=== PATIENT | male | born 1985 | race Caucasian/White ===

== ENCOUNTER → 2020-11-01 11:44 | Outpatient (CLI) | payer BC, SELFPAY ==
[2020-11-01 12:37] LABS: Basophils % 0.5 % (0.1-2.0); Eosinophils # 0.1 K/mm3 (0.0-0.4); Eosinophils % 1.6 % (0.1-12.0); Hematocrit 46.7 % (42.0-52.0); Lymphocytes # 2.3 K/mm3 (0.7-4.5); Lymphocytes % 28.4 % (10-50); Mean Corpuscular HGB Conc 34.3 g/dL (31.8-35.4); Mean Corpuscular Hemoglobin 32.4 pg (27.0-31.2); Mean Corpuscular Volume 94.3 fl (80-94); Mean Platelet Volume 7.3 fl (7.4-10.4); Monocytes # 0.9 K/mm3 (0.1-1.0); Monocytes % 10.5 % (1.7-9.3); Neutrophils # 4.9 K/mm3 (1.8-7.8); Neutrophils % 58.9 % (37.0-80.0); Platelet Count 210 K/mm3 (142-424); Red Blood Count 4.96 M/mm3 (4.60-6.20); Red Cell Distribution Width 13.2 % (11.5-17.5); White Blood Count 8.2 K/mm3 (4.8-10.8)
== END ==
PROVIDERS: PCP Family Medicine; Visit Provider Nurse Practitioner
DX: Z20.822 Contact with and (suspected) exposure to COVID-19 (principal); U07.1 COVID-19; J06.9 Acute upper respiratory infection, unspecified
CPT/HCPCS: 36415; 85025; U0003

== ENCOUNTER → 2021-09-14 09:54 | Outpatient (CLI) | payer BC, SELFPAY | PROVIDERS: Visit Provider Nurse Practitioner | DX: Z20.822 Contact with and (suspected) exposure to COVID-19 (principal) | CPT/HCPCS: C9803; U0003; U0005 ==

== ENCOUNTER 2024-09-24 11:52 | Outpatient (CLI) | payer BC, SELFPAY ==
--- NOTE | 2024-09-24 14:10 | CT_ITS ---
FINAL REPORT TECHNIQUE: After the administration of oral and intravenous contrast, axial images were obtained through the abdomen and pelvis by computed tomography. The study was performed with techniques to keep radiation dose as low as reasonably achievable, (ALARA). Individual dose reduction techniques using automated exposure control or adjustment of mA and/or kV according to the patient's size were employed. CLINICAL HISTORY: POSSIBLE APPENDICITIS COMPARISON: None FINDINGS: Abdomen: The lung bases are clear. There is a small sliding-type hiatal hernia. There is moderate fatty infiltration of the liver. The gallbladder is absent. The spleen, pancreas, adrenals and kidneys appear unremarkable. The aorta is normal in caliber. There is no free fluid. There are multitude of enlarged lymph nodes throughout the mesentery measuring 1.8 cm in greatest dimension with mild edema surrounding the lymph nodes consistent with acute mesenteric adenopathy. These are well seen on axial images 49 through 72 of series 2. Pelvis: The appendix is normal size. There is mild hazy stranding in the right lower quadrant likely also related to mesenteric adenitis. The urinary bladder is normal size and configuration. There is no pelvic free fluid. IMPRESSION: Multitude of mesenteric lymph nodes with surrounding hazy edema probably related to acute mesenteric adenitis. Correlate clinically. Reviewed, Interpreted and Dictated by Mukul Allan MD Transcribed by Donya Gunderson Authenticated and [facility]
[2024-09-24] MEDS: DIATRIZOATE MEG 66% & DIATRIZOATE NA 10% 30ML UDC 30 ML PO (14:15)
[2024-09-24] MEDS: SODIUM CHLORIDE 0.9% 10ML SYR (RAD ONLY) 10 ML IV (14:15)
[2024-09-24] MEDS: IOPAMIDOL-370 (76%);100ML BOTTLE 75 ML IV (14:15)
== END 2024-09-24 23:59 | disposition home or self-care (01) ==
LOC: RAD 11:55
PROVIDERS: PCP Family Medicine; Visit Provider Physician Assistant
DX: R10.31 Right lower quadrant pain (principal)
CPT/HCPCS: 74177; Q9963; Q9967